=== PATIENT | male | born 1945 | race Caucasian/White ===

== ENCOUNTER → 2016-08-29 | Outpatient (CLI) | payer OTHER ==
--- NOTE | 2016-08-29 11:44 | MR ---
MRI of the Right Knee Without Contrast History: Right knee pain and swelling. Degenerative medial meniscus tear, M23.203. Technique: 3 Geetha MRI imaging of the right knee with sagittal, coronal, and axial multisequence PD f at-suppressed, and T1 series. Findings: Large joint effusion. The anterior and posterior cruciate ligaments are intact. Quadriceps tendon insertion and patellar tendon appear intact without tears. Edema superficial to the medial and lateral collateral ligaments, quadriceps tendon insertion, and iliotibial band without tears. Retina cula appear intact. Lateral patellar tilt without patellar chondromalacia. No patellar fracture. The body and posterior horn of the medial meniscus demonstrate abnormal intrasubstance signal and fra gmentation consist with chronic tear and degeneration of the inferior surface. Medial meniscus anteri or horn appears intact. The entire lateral meniscus demonstrates abnormal signal extending to the inferior articular surfaces involving the anterior and posterior horns with slight truncation of the posterior horn and no signi ficant residual body consistent with complex chronic tear and degeneration. Thinning and irregularity of the medial femoral condyle and tibial plateau articular cartilage. Thinn ing and more focal defects involving the weight-bearing surface of the articular cartilage of the lat eral femoral condyle and lateral tibial plateau. Degenerative signal in the lateral femoral condyle a nd tibial plateau reticular surfaces also. Small Bernard's cyst in the medial popliteal fossa. Impression: 1. Complex tears and degeneration of the medial and lateral menisci. 2. Moderate joint effusion. Small Bernard's cyst. 3. Intact cruciate and collateral ligaments. 4. Lateral patellar tilt without patellar chondromalacia. 5. Degenerative joint disease with chondromalacia of the medial and lateral tibiofemoral weight-beari ng surfaces, most prominent in the lateral tibiofemoral compartment.
== END ==
LOC: FIMAGING 09:41
PROVIDERS: ATTEND Physician Assistant
DX: M23.203 Derangement of unspecified medial meniscus due to old tear or injury, right knee (principal); M71.21 Synovial cyst of popliteal space [Baker], right knee; M17.11 Unilateral primary osteoarthritis, right knee; M94.261 Chondromalacia, right knee

== ENCOUNTER 2016-09-07 09:31 | Day surgery (SDC) | payer OTHER ==
--- NOTE | 2016-09-05 16:50 | GHP ---
[f rep st] PREOP HISTORY AND PHYSICAL DATE OF ADMISSION: 09/07/2016 DATE OF SURGERY: September 07, 2016. PROBLEM: Right knee degenerative medial and lateral meniscal tears. HISTORY OF PRESENT ILLNESS: The patient is a 71-year-old male, who will be an outpatient for arthros copic surgery on September 07, 2016, with Dr. Baldwin. The patient has had intermittent knee pain and s welling for the past year. In the last 5 months, his pain and swelling have been worse. Around the same time of the onset of his right knee pain and swelling, he underwent cardiothoracic surgery for a ortic valve replacement with porcine valve, bypass surgery of the coronary vessels, and a Maze proced ure. The patient tried playing tennis a few weeks ago for about 30 minutes. Following that episode, he had increased pain and swelling, which has persisted. A recent MRI shows degenerative meniscal t ears, and because of his recalcitrant response to conservative therapies, the patient has elected to proceed with arthroscopic surgery. PAST MEDICAL HISTORY: Pertinent for coronary artery disease, aortic valve replacement, chronic Couma din therapy, TB, skin cancer, and hernia. CURRENT MEDICATIONS: Atorvastatin 40 mg, bumetanide 1 mg and 2 mg, carvedilol 3.125 mg, cromolyn eye drops, Klor-Con M 20 mEq, levothyroxine 125 mcg, Niaspan 1000 mg, pantoprazole 40 mg, potassium chlo ride ER 10 mEq, QVAR 80 mcg, terazosin 2 mg, warfarin 2.5 mg, and Zetia 10 mg. MEDICATION ALLERGIES: He has no known drug allergies. SOCIAL HISTORY: The patient is . He is retired. No history of tobacco use. Moderate alcoho l use. His activities include tennis, biking, and golfing. PAST SURGICAL HISTORY: Double bypass in 1993, aortic valve replacement and bypass surgery in 2015, a nd loop recorder placement in 2015. PHYSICAL EXAMINATION: GENERAL: He is a healthy-appearing 71-year-old male. VITALS: Height 6 feet, 184 pounds, BMI 25.0. HEENT: Head is normocephalic, atraumatic. Eyes are PERRLA. Conjunctivae and sclerae are clear. Mo uth has good oral hygiene without any loose teeth. LUNGS: Clear. HEART: Regular rate and rhythm. He has a grade 2/6 systolic murmur heard best at the right upper sternal border. No gallops or rubs . EXTREMITIES: Pertinent findings are limited to the patient's right knee. He has a moderate knee jose guadalupe nt effusion. He has full knee extension and 90 degrees of flexion. The knee is stable to exam. He has tenderness to palpation of the medial and lateral joint lines, as well as a positive medial and l ateral Yoshi's. He is neurovascular intact with intact skin. DIAGNOSTIC IMAGING: Recent x-rays taken of the patient's right knee show [id number]-lk-[id number] joint spac e narrowing of the medial and lateral tibial compartments without any significant peripheral osteophy te formation. Recent MRI shows degenerative meniscal tears of the medial and lateral menisci. IMPRESSION: 1. Symptomatic medial and lateral degenerative meniscal tears. 2. History of aortic valve replacement with porcine valve and bypass surgery. PLAN: The plan will be for the patient to undergo outpatient arthroscopic surgery with Dr. Baldwin at [facility] on September 07, 2016. The surgery has been described to the patient, incl uding the risks, benefits, and expectations. He understands the risk of infection, nerve injury, blo od clots, or OK. He understands that any preexisting arthritis of the knee cannot be addressed with arthroscopic surgery. All his questions have been answered, and he consents to surgery here in the o ffice today. /[id number]/MODL
[~2016-09-07 09:31] MED LIST: CEFAZOLIN 2 GM/DEXTR 100 ML IV ONE; CHLORHEXIDINE GLUC HIBICLENS 118 ML BTL TP ONE
[2016-09-07] MEDS ORDERED: LIDOCAINE 1% 5 ML SDV ONE (09:47)
[2016-09-07] MEDS ORDERED: CEFAZOLIN 2 GM/DEXTROSE/100 ML BAG IV ONE (09:48)
[2016-09-07] MEDS ORDERED: LIDOCAINE 1% 5 ML SDV ID PRN (10:47)
[2016-09-07] MEDS ORDERED: LR 1,000 ML IV ONE (10:47)
[2016-09-07] MEDS ORDERED: fentaNYL 100 MCG/2 ML INJ ONE (10:48)
[2016-09-07] MEDS ORDERED: PROPOFOL/EMULSION 500 MG/50 ML BOTTLE IV ONE (10:49)
[2016-09-07] MEDS ORDERED: BUPIVACAINE/EPI 0.5% 30 ML SDV ONE (10:58)
[2016-09-07] MEDS ORDERED: MIDAZOLAM 2 MG/2 ML VIAL ONE (11:50)
[2016-09-07] MEDS ORDERED: morphINE PF 5 MG/10 ML INJ ONE (12:09)
[2016-09-07] MEDS ORDERED: DEPO METHYLPREDNISOLONE 40 MG/ML SDV ONE (12:09)
[2016-09-07] MEDS ORDERED: SUCCINYLCHOLINE CHLORIDE*ANESTHESIA ONLY*200 MG/10 ML SYR IVP ONE (12:44)
[2016-09-07] MEDS ORDERED: DEXAMETHASONE 4 MG/ML VIAL ONE (12:44)
[2016-09-07] MEDS ORDERED: ONDANSETRON 4 MG/2 ML VIAL ONE (12:45)
--- NOTE | 2016-09-07 14:03 | GOP ---
[f rep st] OPERATIVE REPORT DATE OF OPERATION: 09/07/2016 SURGEON: Ismael Baldwin MD PRE FABRICATOR: SUSIE Madrid ANESTHESIA: General. ANESTHESIOLOGIST: Dr. Cherelle Lopez PREOPERATIVE DIAGNOSIS: Right knee probable torn medial and lateral menisci. POSTOPERATIVE DIAGNOSIS: Right knee torn medial and lateral menisci. PROCEDURE PERFORMED: Right knee arthroscopy and arthroscopic partial medial and lateral meniscectomy . FINDINGS: DESCRIPTION OF PROCEDURE: The patient was given 2 g of preoperative Ancef within 60 minutes of surge ry. He was placed supine on the operating room table and given general anesthesia by Dr. Lopez. H is right lower extremity was prepped with ChloraPrep from the upper thigh tourniquet to the tips of t he toes. It was draped free using sterile sheets, towels, and stockinette. The leg was exsanguinate d with elevation and a 6-inch compressive wrap, and pneumatic tourniquet was inflated to 250 mmHg. The [employer] time-out was performed to verify the correct patient identity and the c orrect surgical side and site. The [place] time-out was also performed. A 4 mm diagnostic arthroscope was introduced through an anterolateral portal. An outflow needle was inserted superomedially, and through and through irrigation system was established. I drained about 15 cc of clear yellow synovial fluid from the joint. A nerve hook was introduced through an anteromedial portal after first localizing the portal with an 18-gauge spinal needle. The suprapatellar pouch was inspected. It contained a moderate amount of chronically inflamed synovi um. The articular surface of his patella was generally in good condition. He had some minor fibrill ation. He had some grade 2 roughening and thinning of the articular cartilage in his femoral sulcus. The medial and lateral gutters were clear. He had a small osteophyte on the rim of his medial femo ral condyle. The medial compartment was inspected. The medial compartment articular surfaces were generally in go od condition. He had some minor fibrillation of his medial femoral condyle. He had a badly macerate d and torn medial meniscus in the middle and posterior one thirds. There was an anteriorly based fla p tear. When I elevated the meniscus with a nerve hook, about 6 or 8 small pieces of articular carti colt debris flushed out into the joint. Basket forceps were used to trim the torn portion of the med ial meniscus. I trimmed it back to a smooth stable rim. I made a smooth contour with the intact ant erior portion of his medial meniscus. The intercondylar notch was inspected and his ACL was normal. The leg was placed in a pesyeb-xr-gucj position and the lateral compartment was inspected. He had gr felix 2 and grade 3 articular cartilage damage over most of the surface of his tibial plateau with a co uple of small areas with exposed subchondral bone. His lateral meniscus was badly damaged. It was c ompletely torn as it passed in front of the popliteus tendon. It was badly macerated. I used a [employer] et forceps and the motorized shaver to remove the torn degenerated portions. He had white chalky mat erial within the body of the meniscus which looked like chondrocalcinosis. I did some light shaving of the articular surface of the tibial plateau with a motorized shaver. He had grade 2 articular car tilage damage on his lateral femoral condyle. I used the motorized shaver to suck out any remaining meniscal and articular cartilage debris from th e suprapatellar pouch area. The puncture wounds were closed with 4-0 nylon simple sutures. Each wound was infiltrated with 0.5% Marcaine with epinephrine for a total volume of 20 cc. I then instilled 10 cc of 0.5% Marcaine with epinephrine, 5 mg of Duramorph, and 40 mg of Depo-Medrol intra-articularly. The puncture wound was covered with Xeroform gauze and flat 4x4s. The knee was wrapped with Kerlix a nd 6-inch compressive wrap. The tourniquet was deflated, and total tourniquet time was 25 minutes. A long-leg ANGELA stocking was applied to his right lower extremity. He wore a stocking on the opposite leg during the procedure. He was awakened from anesthesia, transferred to his [facility] and taken to PACU in satisfactory condition. There were no recognized intraoperative complications. /[id number]/MODL
== END 2016-09-07 14:05 | disposition home or self-care (01) ==
LOC: FSGY 09:31
PROVIDERS: ATTEND Orthopaedic Surgery
PROC: 0SBC4ZZ Excision of Right Knee Joint, Percutaneous Endoscopic Approach (ICD-10-PCS; principal; 2016-09-07 11:15)
DX: M23.021 Cystic meniscus, posterior horn of medial meniscus, right knee (principal); M23.061 Cystic meniscus, other lateral meniscus, right knee; I25.10 Atherosclerotic heart disease of native coronary artery without angina pectoris; E03.9 Hypothyroidism, unspecified; K21.9 Gastro-esophageal reflux disease without esophagitis; Z95.2 Presence of prosthetic heart valve; Z95.1 Presence of aortocoronary bypass graft; Z79.01 Long term (current) use of anticoagulants; Z85.828 Personal history of other malignant neoplasm of skin
CPT/HCPCS: J0330; J0690; J1020; J1100; J2250; J2274; J2405; J2704; J3010

== ENCOUNTER → 2017-05-26 | Outpatient (CLI) | payer OTHER, MEDICARE | LOC: FIMAGING 12:03 | PROVIDERS: ATTEND Internal Medicine | DX: M89.8X8 Other specified disorders of bone, other site (principal); M41.86 Other forms of scoliosis, lumbar region; M51.26 Other intervertebral disc displacement, lumbar region; M25.78 Osteophyte, vertebrae ==

== ENCOUNTER → 2017-06-19 | Outpatient (CLI) | payer OTHER, MEDICARE ==
[~2017-06-19] MED LIST changes: -CEFAZOLIN 2 GM/DEXTR 100 ML IV ONE; -CHLORHEXIDINE GLUC HIBICLENS 118 ML BTL TP ONE; +GADOBUTROL 10 ML VIAL IVP ONE
== END ==
LOC: FIMAGING 07:24
PROVIDERS: ATTEND Internal Medicine
DX: M54.5 Low back pain (principal); M51.36 Other intervertebral disc degeneration, lumbar region; M51.37 Other intervertebral disc degeneration, lumbosacral region; M51.26 Other intervertebral disc displacement, lumbar region; M48.061 Spinal stenosis, lumbar region without neurogenic claudication; M48.07 Spinal stenosis, lumbosacral region; M12.9 Arthropathy, unspecified; Z79.899 Other long term (current) drug therapy
CPT/HCPCS: 72158; A9585

== ENCOUNTER 2017-08-17 07:16 | Day surgery (SDC) | payer OTHER, MEDICARE ==
[2017-08-17] MEDS ORDERED: LIDOCAINE 1% 300 MG/30 ML SDV SC ONE (07:22)
--- NOTE | 2017-08-17 08:23 | PDHPUP ---
History & Physical Update H&P update statement: This history and physical update is based on an assessment of the patient which was completed after admission or registration (within 24 hours), but prior to the surgery/procedure. H&P update: H&P reviewed & patient examined, no change in patient's condition since H&P completed
--- NOTE | 2017-08-17 12:29 | EPPROC ---
Electrophysiology Procedure Note: Procedure: LINQ explant Indication: LINQ no longer needed since diagnosis determined Procedure: Parts prepared and draped. LA given. Incision placed. LINQ explanted. Staple placed. Dry sterile dressing placed. Conclusion: Successful LINQ explant Patient Problems: Problems Problem Status Onset S/P AVR (aortic valve replacement) Acute S/P CABG x 1 Acute S/P ablation of atrial fibrillation Acute Calcific aortic valve stenosis Chronic Coronary stent restenosis Chronic Hx of CABG Chronic Paroxysmal atrial fibrillation Chronic
== END 2017-08-17 09:30 | disposition home or self-care (01) ==
LOC: FCATH 07:16
PROVIDERS: ATTEND Internal Medicine Cardiovascular Disease
PROC: 0JPT02Z Removal of Monitoring Device from Trunk Subcutaneous Tissue and Fascia, Open Approach (ICD-10-PCS; principal; 2017-08-17)
DX: I48.91 Unspecified atrial fibrillation (principal); I44.7 Left bundle-branch block, unspecified; Z79.01 Long term (current) use of anticoagulants; Z95.2 Presence of prosthetic heart valve; Z95.1 Presence of aortocoronary bypass graft

== ENCOUNTER → 2018-06-19 | Outpatient (CLI) | payer OTHER, MEDICARE | LOC: BHFA 09:15 | PROVIDERS: ATTEND Internal Medicine Cardiovascular Disease | DX: I25.10 Atherosclerotic heart disease of native coronary artery without angina pectoris (principal); I35.0 Nonrheumatic aortic (valve) stenosis ==